=== PATIENT | female | born 1965 | race Caucasian/White ===

== ENCOUNTER 2022-01-16 09:31 | Emergency (ER) | payer OTHER ==
[~2022-01-16] VITALS: Ht 152.4 cm; Wt 104.3 kg
[~2022-01-16 09:31] MED LIST: ALBUTEROL0.09 MG/A2 PO; BENZONATE100 MG PO; CLARITIN10 MG PO; FLEXERIL5 MG PO; HYDROCODONE BIT1 T11 PO; LEVOXYL0.175 MG PO; MYLICON,MYLANTA40 MG PO; NASONEX0.05 MG/AC NAS; NEURONTIN800 MG PO; OMEPRAZOLE20 MG PO; OMEPRAZOLE40 MG PO; POTASSIUM CITR10 MEQ PO; PREDNICOT20 MG PO; Percocet 325 MG1 TAB PO; SKELAXIN400 MG PO; ZOFRAN8 MG PO
== END 2022-01-16 12:03 | disposition home or self-care (01) ==
LOC: ED 09:31
DX: S80.01XA Contusion of right knee, initial encounter (principal); R60.0 Localized edema; Z91.040 Latex allergy status; Z79.899 Other long term (current) drug therapy; Z90.710 Acquired absence of both cervix and uterus; Z98.51 Tubal ligation status; W21.89XA Striking against or struck by other sports equipment, initial encounter; Y93.89 Activity, other specified; Y92.89 Other specified places as the place of occurrence of the external cause; Y99.8 Other external cause status